=== PATIENT | male | born 1975 | race Hispanic/Latino ===

== ENCOUNTER 2022-12-15 09:55 | Emergency (ER) | payer SELFPAY ==
[2022-12-15 10:54] LABS: RSV AMPLIFICATION NEGATIVE (NEGATIVE)
[2022-12-15] MEDS ORDERED: KETOROLAC 60MG 2ML VIAL IM ONE (11:50)
[2022-12-15] MEDS ORDERED: BENZONATATE 100MG CAPSULE PO ONE (11:50)
[2022-12-15] MEDS ORDERED: ALBUTEROL 90 MCG/ACT 8GM HFA INHALER INH ONE (11:50)
[2022-12-15 12:27] LABS: BASO # 0.1 10^3/uL (0.0-0.2); BASO % 1.2 % (0.0-1.0); EOS # 0.3 10^3/uL (0.0-0.5); EOS % 4.4 % (0.0-3.0); HEMATOCRIT 42.7 % (42.0-52.0); HEMOGLOBIN 14.5 g/dl (13.5-17.5); LYMPH # 1.7 10^3/uL (1.5-5.0); LYMPH % 30.5 % (24.0-44.0); MEAN CORPUSCULAR HEMOGLOBIN 32.2 pg (27.0-33.0); MEAN CORPUSCULAR VOLUME 94.7 fl (80.0-96.0); MONO # 0.8 10^3/uL (0.0-0.8); MONO % 14.5 % (2.0-8.0); NEUTROPHILS # 2.8 10^3/uL (1.5-8.5); NEUTROPHILS % 49.2 % (36.0-66.0); PLATELET COUNT, AUTOMATED 253 10^3/uL (150-450); RED BLOOD COUNT 4.51 10^6/uL (4.30-6.10); WHITE BLOOD COUNT 5.7 10^3/uL (4.0-10.0)
[2022-12-15 12:53] LABS: CK-MB VALUE MASS < 1.0 NG/ML (<3.6)
[2022-12-15 13:00] LABS: CPK CREATINE PHOSPHOKINASE 169 U/L (46-171); MB/CK RELATIVE INDEX 0.59 (< OR =4)
[2022-12-15 13:12] VITALS: BP 113/76; TEMP 97.9; O2SAT 100
[2022-12-15] MEDS ORDERED: BENZ200C70 PO (13:34)
== END 2022-12-15 13:41 | disposition home or self-care (01) ==
LOC: M ED 09:55
DX: R07.9 Chest pain, unspecified (principal); R05.9 Cough, unspecified; R00.1 Bradycardia, unspecified; I44.4 Left anterior fascicular block; F17.200 Nicotine dependence, unspecified, uncomplicated; Z79.811 Long term (current) use of aromatase inhibitors
CPT/HCPCS: 71046; 80047; 82550; 82553; 84484; 85025; 87631; 93005; 94640; 96372; 99284; J1885

== ENCOUNTER → 2023-04-27 | Outpatient (CLI) | payer OTHER ==
[~2023-04-27] MED LIST: BENZ200C70 PO
== END ==
LOC: M OUTALCOH 08:05
PROVIDERS: ATTEND Psychiatry & Neurology Psychiatry
DX: Z03.89 Encounter for observation for other suspected diseases and conditions ruled out (principal); Z72.0 Tobacco use

== ENCOUNTER 2023-05-04 10:40 | Outpatient (RCR) | payer OTHER | END 2023-05-16 | LOC: M OUTALCOH 10:40 | PROVIDERS: ATTEND Psychiatry & Neurology Psychiatry | DX: Z03.89 Encounter for observation for other suspected diseases and conditions ruled out (principal); Z72.0 Tobacco use ==